=== PATIENT | male | born 1990 | race Caucasian/White ===

== ENCOUNTER 2018-08-16 09:00 | Day surgery (SDC) | payer OTHER ==
--- NOTE | 2018-08-16 08:49 | ANESTHESIA ---
Pre-Anesthesia VS, & Labs - Diagnosis Right inguinal hernia - Procedure Right inguinal hernia repair with mesh - NPO >8 hours Home Medications and Allergies Home Medications: Ambulatory Orders Naproxen [Naprosyn] 500 mg PO 08/13/18 Naproxen [Naprosyn] 500 mg PO 08/13/18 Allergies/Adverse Reactions: Allergies Allergy/AdvReac Type Severity Reaction Status Date / Time No Known Drug Allergies Allergy Verified 08/13/18 14:17 Anes History & Medical History - Anesthetic History Anesthesia Complications: reports: No previous complications Family history of Anesthesia Complications: Denies Family history of Malignant Hyperthermia: Denies - Medical History Cardiovascular: reports: None Pulmonary: reports: None Gastrointestinal: reports: None, Other Urinary: reports: None Neuro: reports: None Musculoskeletal: reports: None Endocrine/Autoimmune: reports: None Blood Disorders: reports: None Skin: reports: None Smoking Status: Current some day smoker Psychosocial: reports: No issues indicated - Surgical History Eyes Ears Nose Throat (EENT): Tonsil/Adenoidectomy, Other (Third molars) Exam General: Alert Dental: Other (Perm retainer) Mouth Opening: Greater than 4 Fingerbreadths Neck Mobility: Normal Mallampati classification: I Thyromental Distance: greater than 6 cm Respiratory: Lungs clear Cardiovascular: Regular rate Neurological: Normal speech Mental/Cognitive Status: Alert/Oriented X3 Cognitive Status: Within normal limits Plan Anesthesia Type: General Consent for Procedure(s) Verified and Reviewed: Yes Code Status: Attempt Resuscitation ASA classification: 2-Mild systemic disease Is this case an emergency?: No
[~2018-08-16 09:00] MED LIST: LACTATED RINGERS 1,000 ML IV ONE; ceFAZolin 2 GM/50 ML 2 GM/50 ML BAG IV ONE
[2018-08-16] MEDS ORDERED: BUPIVACAINE 0.5% PF 30 ML VIAL ONE (09:57)
[2018-08-16] MEDS ORDERED: LIDOCAINE 1%-EPI 1:100000 30 ML MDV ONE (09:57)
[2018-08-16] MEDS ORDERED: ceFAZolin 1 GM VIAL ONE (09:58)
[2018-08-16] MEDS ORDERED: DEXAMETHASONE 4 MG/ML VIAL IVP ONE (11:37)
[2018-08-16] MEDS ORDERED: ACETAMINOPHEN 1,000 MG/100 ML 100 ML IV ONE (11:37)
[2018-08-16] MEDS ORDERED: MIDAZOLAM 2 MG/2 ML VIAL IVP ONE (11:37)
[2018-08-16] MEDS ORDERED: PROPOFOL 200 MG/20 ML VIAL IVP ONE (11:37)
[2018-08-16] MEDS ORDERED: LIDOCAINE-MPF 2% 5 ML VIAL IM ONE (11:37)
[2018-08-16] MEDS ORDERED: KETOROLAC 30 MG/ML VIAL IVP ONE (11:37)
[2018-08-16] MEDS ORDERED: ONDANSETRON 4 MG/2 ML VIAL IVP ONE (11:37)
[2018-08-16] MEDS ORDERED: LACTATED RINGERS 1,000 ML IV ONE (12:13)
[2018-08-16] MEDS ORDERED: oxyCODONE 5 MG TABLET PO PRN (12:40)
[2018-08-16] MEDS ORDERED: ACETAMINOPHEN 325 MG TABLET PO PRN (12:40)
[2018-08-16] MEDS ORDERED: IBUPROFEN 600 MG TABLET PO PRN (12:40)
[2018-08-16] MEDS ORDERED: ONDANSETRON 4 MG/2 ML VIAL IVP PRN (12:40)
--- NOTE | 2018-08-16 13:25 | OPERATIVE REPORT ---
DATE OF SERVICE: 08/16/2018 Physician: Víctor Campa MD PREOPERATIVE DIAGNOSIS: Symptomatic right inguinal hernia. POSTOPERATIVE DIAGNOSIS: Symptomatic right inguinal hernia, indirect. PROCEDURE PERFORMED: Open repair of same with polypropylene mesh. ANESTHESIA: General endotracheal, plus local by Corky Kay CRNA. SURGEON: Víctor Campa MD. ESTIMATED BLOOD LOSS: 5 mL COMPLICATIONS: None. FINDINGS: A small indirect right inguinal hernia was identified. There is no evidence of direct or femoral hernia. INDICATIONS: This patient is a 27-year-old gentleman with a history of a painful right groin bulge. Examination revealed a reducible right inguinal hernia. He was advised to undergo repair. TECHNIQUE: After informed consent, the patient was taken to the operating room where he was placed under general endotracheal anesthesia. Preoperative preparation application of sequential graft compression boots and administration of 2 grams cefazolin intravenously within an hour of the incision. His right groin had been clipped in the ASU and was prepared with ChloraPrep solution and draped in the usual sterile fashion. A 50:50 combination of 1% lidocaine plain 0.5% Marcaine with epinephrine was used for local infiltration anesthesia; approximately 20 mL of the mixture was used. A transverse incision was made in the skin lines at the right groin beginning just above the pubic tubercle and extending laterally approximately 5 cm. Hemostasis achieved with electrocautery and 2-0 Vicryl ties. The incision was carried down through subcutaneous tissue until the external oblique aponeurosis was identified. It was incised along the lines of its fiber in such a manner as to open the external ring and expose the internal ring. The ilioinguinal nerve was divided to avoid entrapment and neuralgia. The spermatic cord was mobilized and encircled with a Dennys drain. The spermatic cord was carefully dissected, isolating an indirect sac and dissecting it free from surrounding cord structures to the level of the internal ring, where it was opened and a finger inserted in the peritoneal cavity. A search for direct and femoral hernia was made and was identified. The sac was twisted and doubly highly suture ligated with 3-0 silk suture ligatures. Excess hernia sac was amputated and discarded. After hemostasis was assured, the wound was irrigated with antibiotic solution containing 1 gram of cefazolin per liter following which a Covidian medium weight expanded polypropylene precut slotted mesh was brought onto the field after soaking in antibiotic solution. It was placed over the inguinal floor and secured in place with continuous 3-0 Prolene sutures, securing the mesh to the shelving edge of Poupart's ligament inferiorly to the internal oblique aponeurosis superolaterally and to the lateral border of the rectus sheath medially. Care was taken to avoid excessive tightening of the mesh around the cord at the level of the internal ring. After hemostasis was assured, the wound was again irrigated with antibiotic solution, following which wound closure was accomplished in layers using continuous 2-0 Vicryl, reapproximated the external oblique aponeurosis overlying the cord, followed by continuous 3-0 Vicryl for the Jj fascia, followed by 4-0 Monocryl for subcuticular skin closure, followed by Dermabond. Anesthesia was terminated without apparent complication. The patient was transferred to recovery room in satisfactory condition. Sponge and needle counts were correct x2. No drains were used. TD: 08/16/2018 12:56 BIN
[2018-08-16 14:23] VITALS: BP 131/84
== END 2018-08-16 09:01 | disposition home or self-care (01) ==
LOC: SDS 09:00
PROVIDERS: ATTEND Internal Medicine Gastroenterology
PROC: 0YU50JZ Supplement Right Inguinal Region with Synthetic Substitute, Open Approach (ICD-10-PCS; principal; 2018-08-16 10:15)
DX: K40.90 Unilateral inguinal hernia, without obstruction or gangrene, not specified as recurrent (principal); K59.00 Constipation, unspecified; E66.9 Obesity, unspecified; Z68.31 Body mass index [BMI] 31.0-31.9, adult; F17.210 Nicotine dependence, cigarettes, uncomplicated
CPT/HCPCS: 49505; A9270; J0131; J0690; J7120

== ENCOUNTER 2019-09-06 13:57 | Outpatient (CLI) | payer OTHER ==
[2019-09-06 15:15] VITALS: BP 127/89
--- NOTE | 2019-09-06 15:15 | SLEEP CARE CONSULTATION ---
Information from patient questionnaire entered by Deloris Shrestha. I have reviewed and concur with the information entered by Deloris Shrestha. This document represents the service I personally performed and the decisions made by me, Clara Ruth MD, [facility]. History of Present Illness Reason for Visit: New patient Chief Complaint: reports: Snoring, Frequent awakenings at night Duration of Symptoms: 1+ years Usual bedtime: 2100 Time it takes to fall asleep: 30-60 minutes Snores at night: Yes Observed to quit breathing while asleep: Yes Sleeps alone due to snoring: No Number of times waking at night: 3-4 Reasons for waking at night: reports: Gasping for air Toss, Turn, or Twitch while sleeping: Yes Recalls having dreams: No Usually gets out of bed at: 0430/0900 weekends Feels refreshed in the morning: No Morning headache: Yes Sleepy or fatigued during the day: Yes Ever fallen asleep while driving: No Takes day naps: Yes Dreams during day naps: No Prior sleep studies: No Additional HPI information: I had the pleasure of seeing Mr. Hennessy today regarding the possibility of him having a sleep disorder. As you know, he is a 28 year old gentleman who complains of loud snore and frequent awakenings for the past one year. The patient tells me that he normally goes to bed around 9 pm, and it takes him approximately 30 - 60 minutes to fall asleep. He takes an [id number] sleep aid. He has been told that he snores loudly and irregularly at night. He has also been observed to stop breathing in his sleep. His bed partner can still sleep in the same bed. He can recall waking up on the average of 3 - 4 times during the night. Most of the time he wakes up because of having to gasp for air. There is not a lot of tossing and turning in his sleep. He reports having somniloquy (sleep talking) but not somnambulism (sleep walking). Generally there is no recollection of dreams. In the morning he usually gets up out of the bed around 4:30 - 9 a.m. not feeling refreshed nor rested. He usually has a morning headache. During the day he complains of feeling sleepy and fatigued. His score on [place] Sleepiness Scale is 14 out of 24. He has never fallen asleep while driving nor has had any accident due to sleepiness. He usually takes naps during the day. Upon falling asleep during the day he denies having vivid dreams. He has never had sleep paralysis, experienced cataplexy or symptoms of restless leg syndrome. He reports having impaired concentration during the day. Subjective Initial [place] Sleepiness Scale score: 14 Past Medical History Past Medical History: reports: Other (low back pain; s/p tonsillectomy) Social History The patient's occupation is active . Patient is Single and lives in [place]. Have you smoked in the past 12 months: Yes Cigarettes per day (20/pack): 5 Years of smokin Quit date: 06/2019 Smoking Pack Years: 2.4 Alcohol use: Yes Alcohol amount and frequency: 4, 2-3 times/week Caffeine use: Yes Caffeine amount and frequency: 1 Family History Family history of sleep disordered breathing: Yes Family Hx Sleep Apnea: Father: Snoring Allergies and Home Medications Drug allergies reviewed: Yes (NKDA) Home medication list reviewed: Yes (naproxen) Review of Systems Cardiovascular: reports: palpitations Respiratory: reports: wheeze Gastrointestinal: denies: heartburn, difficulty swallowing, nausea, vomitting, diarrhea, abdominal pain, other Urinary: denies: incontinence, frequency, urgency, impotence, other Neurological: denies: headaches, seizure, head trauma, disorientation, speech dysfunction, gait or balance problems, fainting or unconsciousness, other Psychiatric: denies: Attention Deficit Hyperactivity, anxiety, depression, mood disorder, claustrophobia, other Ear/Nose/Throat: reports: nasal congestion, sinus problems, dry mouth/throat, wisdom teeth removed Endocrine: denies: thyroid disease, history of goiter, sluggishness, too hot or cold, excessive thirst, increased appetite, increased urination, unexplained weakness, other Musculoskeletal: reports: back pain Immunologic: reports: sneezing Physical Exam Vital signs obtained and entered by: Dr. Ruth Blood Pressure: 127/89 Cuff size: regular Heart Rate: 64 O2 Saturation: 97 Height: 5 ft 11 in Weight: 210 lb Body Mass Index: 29.2 BMI Classification: Overweight Neck circumference: 16 HEENT: No craniofacial malformation Nostrils: patent to airflow Turbinates: normal Septum: midline Mouth and throat: normal Soft palate: normal Hard palate: normal Uvula: normal Uvula visualization: 100% Mallampati Class I Tongue: normal in size Tonsils: small Chin and jaw: normal size and position Neck: normal w/o lymphadenopathy or thyromegaly Heart: regular rate and rhythm Lungs: clear bilaterally Abdomen: soft, non-tender Extremities: no edema or clubbing Neurologic: intact, no focal deficits Impression and Plan IMPRESSION: 1. Obstructive Sleep Apnea-Hypopnea Syndrome, as suggested by history of loud and irregular snoring, observed cessation of breath while asleep, frequent awakenings during the night, nocturnal choking, unrefreshed sleep, cognitive impairment, and daytime hypersomnolence. Pathophysiology of sleep-disordered breathing was discussed. I recommend proceeding to polysomnography to confirm the diagnosis and to assess severity. If he has significant sleep disordered breathing, a manual CPAP titration study will also be performed to find the optimal treatment pressure. I informed the patient of what the sleep studies involve and after some discussion, he agreed to proceed. Plan: 1. Schedule in-laboratory polysomnography + manual CPAP titration study 2. Avoid long distance driving or when feeling sleepy. 3. Avoid alcohol, sedative and muscle relaxant around bedtime. 4. Attempt to lose some weight. 5. Return in 1 to 2 weeks after the study to discuss results and initiate therapy. I spent 100% of this visit face to face with the patient with greater than 50% of this was spent time counseling the patient and coordination of care.
== END 2019-09-06 13:58 | disposition home or self-care (01) ==
LOC: SC 13:57
PROVIDERS: ATTEND Internal Medicine Pulmonary Disease
DX: R06.83 Snoring (principal); R06.81 Apnea, not elsewhere classified; G47.8 Other sleep disorders; R41.89 Other symptoms and signs involving cognitive functions and awareness; G47.10 Hypersomnia, unspecified; E66.3 Overweight; Z68.29 Body mass index [BMI] 29.0-29.9, adult
CPT/HCPCS: 99203; 99212

== ENCOUNTER 2019-09-19 20:21 | Outpatient (CLI) | payer OTHER | END 2019-09-19 20:22 | disposition home or self-care (01) | LOC: SC 20:21 | PROVIDERS: ATTEND Internal Medicine Pulmonary Disease | DX: R06.83 Snoring (principal); G47.10 Hypersomnia, unspecified; R06.81 Apnea, not elsewhere classified; E66.3 Overweight; Z68.29 Body mass index [BMI] 29.0-29.9, adult | CPT/HCPCS: 95810 ==

== ENCOUNTER 2019-09-28 16:01 | Outpatient (CLI) | payer OTHER ==
[2019-09-28 17:15] VITALS: BP 108/70
--- NOTE | 2019-09-28 17:15 | SLEEP CARE CONSULTATION ---
Information from patient questionnaire entered by Arti Holder. I have reviewed and concur with the information entered by Arti Holder. This document represents the service I personally performed and the decisions made by me, Bernadette Armenta RN, MSN, REGISTERED RESPIRATORY THERAPIST. History of Present Illness Initial [place] Sleepiness Scale score: 14 Current [place] Sleepiness Scale score: 9 Additional HPI information: GRICELDA TURNER returns for follow up of the recently performed polysomnography. I explained the pathophysiology behind obstructive sleep apnea. Patient does not have sleep apnea and was advised how weight gain could increase the risk of developing sleep apnea in the future. I strongly encouraged the patient to lose weight. Patient does not have significant sleep disordered breathing but has elevated AHI in supine position so advised positional therapy. Methods to achieve positional management therapy were discussed; such as, positioning with pillows, wearing a T-shirt with tennis balls sewn into the back, Rematee shirt, Zzomba belt and Slumberbump belt. Pamphlets provided on how to obtain the commercially available products. AASM non PAP treatments also given. Patient has intermittent mild to moderate snoring. Snoring can be reduced by weight loss. Weight loss is best achieved with diet consult. Patient instructed to contact PCP for referral. Snoring can also be treated with an oral appliance from a dentist. Advised to check insurance coverage. Patient not interested at this time. In addition, an ENT evaluation can be do to see if other treatment is indicated. Since he has difficulty breathing through his nose, this is recommended as this can cause sleep disruption. Patient counseled not drink alcohol less than 4 hours before bedtime as it can increase snoring and apnea. Patient was cautioned about risks of drowsy driving until sleepiness symptoms resolve. Patient denies drowsy driving. Sleep Study - Results Polysomnography/Home Sleep Study results: The quality of the study is good. The patient had normal sleep efficiency. The sleep architecture was normal as well. Respiratory monitoring showed no significant sleep disordered breathing (AHI = 4.5). There was very mild hypoxia (medardo oxygen saturation of 84%). The few respiratory events occurred only during supine sleep (supine AHI = 5.7; non-supine = 0.00). Snore was intermittent and moderate in intensity. There was no significant periodic leg movement of sleep. Cardiac rhythm was normal sinus rhythm without significant arrhythmia. No abnormal behavior (parasomnia) observed during the night. Allergies and Home Medications Known drug allergies: No Home medication list reviewed: Yes Allergy and home medication list: naproxen prn Review of Systems Review of systems same as previous: Yes Physical Exam Blood Pressure: 108/70 Cuff size: long Heart Rate: 75 O2 Saturation: 98 Height: 5 ft 11 in Weight: 223 lb Body Mass Index: 31.1 BMI Classification: Obese Impression and Plan Snoring but no significant sleep disordered breathing except for mildly in supine position. Thus patient advised to use positional management treatment. Patient advised that often weight loss will reduce snoring as well as apnea risk. A diet consultation can be used to lose weight with referral from PCP. Modifying portions and healthy content as well as tracking diet intake will assist with weight loss. An oral appliance can also be used for snoring. This would require a dental consultation. Patient cautioned not to use other online appliances as can cause bite issues. Patient would like to concentrated on weight loss and positional management to reduce apnea risk. An ENT consult can also be helpful to determine if any other treatment is an option especially since he has difficulty breathing through his nose which could disrupt sleep. Since he is from [facility] and moving out of area, he is advised to follow up with PCP if symptoms worsen for further evaluation. * Positional management * Attempt to lose weight * Avoid alcohol consumption near bedtime * Consider ENT consult * The patient is cautioned about driving until sleepiness is completely resolved. * Return as needed. Time Spent with Patient (minutes): 30 I spent 100% of this visit face to face with the patient with greater than 50% of this was spent time counseling the patient and coordination of care.
== END 2019-09-28 16:02 | disposition home or self-care (01) ==
LOC: SC 16:01
PROVIDERS: ATTEND Nurse Practitioner Family
DX: R06.83 Snoring (principal); E66.9 Obesity, unspecified; Z68.31 Body mass index [BMI] 31.0-31.9, adult
CPT/HCPCS: 99212; 99214